=== PATIENT | male | born 1955 ===

== ENCOUNTER → 2024-04-11 14:17 | Outpatient (REF) | payer OTHER, SELFPAY | LOC: RCS 14:17 | PROVIDERS: ATTENDING PHYSICIAN Internal Medicine Cardiovascular Disease; FAMILY PHYSICIAN Anesthesiology | DX: E78.5 Hyperlipidemia, unspecified (principal); I71.21 Aneurysm of the ascending aorta, without rupture; R00.1 Bradycardia, unspecified; I25.10 Atherosclerotic heart disease of native coronary artery without angina pectoris; I25.84 Coronary atherosclerosis due to calcified coronary lesion | CPT/HCPCS: 93017 ==

== ENCOUNTER → 2024-04-19 11:01 | Outpatient (REF) | payer OTHER, SELFPAY | LOC: HWRCS 11:01 | PROVIDERS: ATTENDING PHYSICIAN Internal Medicine Cardiovascular Disease | DX: E78.5 Hyperlipidemia, unspecified (principal); I71.21 Aneurysm of the ascending aorta, without rupture; R00.1 Bradycardia, unspecified; I25.10 Atherosclerotic heart disease of native coronary artery without angina pectoris; I25.84 Coronary atherosclerosis due to calcified coronary lesion | CPT/HCPCS: 93306 ==

== ENCOUNTER → 2024-04-26 12:46 | Outpatient (REF) | payer OTHER, SELFPAY | LOC: RCS 12:46 | PROVIDERS: ATTENDING PHYSICIAN Internal Medicine Cardiovascular Disease; FAMILY PHYSICIAN Anesthesiology | DX: R00.1 Bradycardia, unspecified (principal) | CPT/HCPCS: 93225; 93226 ==

== ENCOUNTER → 2024-04-29 08:30 | Outpatient (REF) | payer OTHER, SELFPAY | LOC: DHCBC/DCA 08:30 | PROVIDERS: ATTENDING PHYSICIAN Internal Medicine Cardiovascular Disease; FAMILY PHYSICIAN Anesthesiology | DX: R94.39 Abnormal result of other cardiovascular function study (principal); I25.84 Coronary atherosclerosis due to calcified coronary lesion; R00.1 Bradycardia, unspecified | CPT/HCPCS: 78452; 93017; A9500 ==